=== PATIENT | female | born 1945 | race Asian ===

== ENCOUNTER 2017-12-15 16:52 | Emergency (ER) | payer MEDICARE, OTHER ==
[2017-12-15 17:05] VITALS: BP 138/57
== END 2017-12-15 18:00 | disposition left against medical advice (07) ==
LOC: ED 16:52
DX: Z53.21 Procedure and treatment not carried out due to patient leaving prior to being seen by health care provider (principal)
CPT/HCPCS: 80053; 83690; 85025

== ENCOUNTER 2017-12-16 09:42 | Emergency (ER) | payer MEDICARE, OTHER ==
--- NOTE | 2017-12-16 11:14 | ED Physician Documentation ---
PD HPI ABD PAIN - Stated complaint Stated Complaint: ABD PX - Chief complaint Chief Complaint: Abd Pain - History obtained from History obtained from: Patient, Family - History of Present Illness Timing - onset: How many weeks ago (2) Timing - duration: Weeks (2) Timing - details: Gradual onset, Still present Quality: Sharp, Pain Location: RLQ Radiation: Right flank Improved by: Laying still Worsened by: Moving, Position, Palpation Associated symptoms: Constipation. No: Fever, Nausea, Vomiting, Hematemesis, Diarrhea Similar symptoms before: Has not had sx before Recently seen: Clinic (referred here for CT yesterday) - Additional information Additional information: 72 year old female with abdominal pain on the right side for the past 2 weeks was asked by her primary care doctor to come to the emergency department for evaluation of abdominal pain specifically to get a CT scan to rule out occult appendicitis. The patient has been having pain in the right side that she states is worse when she moves and improves when she has gas. She does states she was out in the garden before all this started she thinks she may have strained her abdominal muscles. She has been able to eat she has not had fever she is otherwise otherwise been ill. She continues to have this pain and she continues to feel there is some issue with gas as well. Review of Systems Constitutional: denies: Fever, Chills, Myalgias, Fatigue Eyes: denies: Decreased vision Ears: denies: Ear pain Nose: denies: Rhinorrhea / runny nose, Congestion Throat: denies: Sore throat Cardiac: denies: Chest pain / pressure, Palpitations Respiratory: denies: Dyspnea, Cough GI: reports: Abdominal Pain, Constipation. 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 Cardiovascular: Coronary stent - Present Medications Home Medications: Ambulatory Orders Medication Instructions Recorded Confirmed Alendronate Sodium 70 mg PO Q7D 11/19/16 11/19/16 Amitriptyline [Elavil] 10 mg PO HS 11/19/16 11/19/16 Aspirin [Aspir-Low] 81 mg PO DAILY 11/19/16 11/19/16 Atorvastatin Calcium [Lipitor] 40 mg PO DAILY 11/19/16 11/19/16 Carvedilol 12.5 mg PO BID 11/19/16 11/19/16 Gabapentin 100 mg PO QPM 11/19/16 11/19/16 Isosorbide Mononitrate [Isosorbide 30 mg PO DAILY 11/19/16 11/19/16 Mononitrate ER] Losartan [Cozaar] 50 mg PO DAILY 11/19/16 11/19/16 Metformin HCl 1,000 mg PO DAILY 11/19/16 11/19/16 Nitroglycerin [Nitrostat] 0.4 mg SL Q5MIN PRN 11/19/16 11/19/16 Sitagliptin Phos/Metformin HCl 1 each PO DAILY 11/19/16 11/19/16 [Janumet 50-500 mg Tablet] - Allergies Allergies/Adverse Reactions: Allergies Allergy/AdvReac Type Severity Reaction Status Date / Time aspirin AdvReac Unknown Verified 12/15/17 17:04 ibuprofen [From Advil] AdvReac Unknown Verified 12/15/17 17:04 - Social History Smoking Status: Never smoker PD ED PE NORMAL - Vitals Vital signs reviewed: Yes (normal ) - General General: Alert and oriented X 3, No acute distress, Well developed/nourished - HEENT HEENT: Atraumatic, PERRL, EOMI - Neck Neck: Supple, no meningeal sign - Cardiac Cardiac: RRR, No murmur - Respiratory Respiratory: No respiratory distress, Clear bilaterally - Abdomen Abdomen: Soft, Other (tenderness to the right abdomen with a feeling of fullness and there is no garding or rebound tenderness. There is no referred tenderness. ) - Back Back: No CVA TTP, No spinal TTP - Derm Derm: Normal color, Warm and dry, No rash - Extremities Extremities: No deformity, No edema - Neuro Neuro: No motor deficit, No sensory deficit Eye Opening: Spontaneous Motor: Obeys Commands Verbal: Oriented GCS Score: 15 - Psych Psych: Normal mood, Normal affect Results - Vitals Vitals: Vital Signs - 24 hr 12/16/17 10:05 Temperature 36.1 C L Heart Rate 81 Respiratory 16 Rate Blood Pressure 134/61 H O2 Saturation 98 Oxygen O2 Source Room air - Labs Labs: Laboratory Tests 12/16/17 12/16/17 12/16/17 11:35 11:35 12:35 WBC 7.0 RBC 4.39 Hgb 12.8 Hct 38.5 MCV 87.6 MCH 29.2 MCHC 33.3 RDW 13.5 Plt Count 213 MPV 9.5 Neut # 3.3 Lymph # 2.5 [place] # 0.6 Eos # 0.3 Baso # 0.2 H Absolute Nucleated RBC 0.00 Nucleated RBC % 0.0 Sodium 136 Potassium 3.6 Chloride 102 Carbon Dioxide 26 Anion Gap 8.0 BUN 19 Creatinine 0.8 Estimated GFR (MDRD) 71 L Glucose 149 H Calcium 9.3 Total Bilirubin 0.7 AST 28 ALT 29 Alkaline Phosphatase 55 Total Protein 7.9 Albumin 4.4 Globulin 3.5 Albumin/Globulin Ratio 1.3 Lipase 29 Urine Color LIGHT YELLOW Urine Clarity CLEAR Urine pH 6.5 Ur Specific [place] <=1.005 Urine Protein NEGATIVE Urine Glucose (UA) NEGATIVE Urine Ketones NEGATIVE Urine Occult Blood NEGATIVE Urine Nitrite NEGATIVE Urine Bilirubin NEGATIVE Urine Urobilinogen 0.2 (NORMAL) Ur Leukocyte Esterase NEGATIVE Ur Microscopic Review NOT INDICATED Urine Culture Comments NOT INDICATED - Rads (name of study) CT abd/pel with Radiology: Prelim report reviewed (Impression: Diffuse fatty infiltration of the liver. The appendix is partially air-filled, top to normal borderline in size 6-7 mm without perapendical inflammatory change. No radiopaque gallstones or renal stones. Source of pain is not seen.), EMP read indepedently, See rad report PD MEDICAL DECISION MAKING - ED course Complexity details: reviewed results, re-evaluated patient, considered differential, d/w patient, d/w family ED course: 72 year-old female with right-sided abdominal pain has no evidence of appendicitis on CT scan has a normal white blood cell count and CT scan does show a lot of stool throughout the colon. She is diagnosed with constipation results of the scan are shared and we will treat the constipation. Departure - Departure Disposition: 01 Home, Self Care Clinical Impression: Constipation Qualifiers: Constipation type: unspecified constipation type Qualified Code(s): K59.00 - Constipation, unspecified Instructions: ED Constipation Follow-Up: Susana Gabriel MD [Primary Care Provider] -
[2017-12-16 11:50] LABS: BASOPHILS # (AUTO) 0.2 10^3/uL (0.0-0.1); BASOPHILS % (AUTO) 2.2 %; EOSINOPHILS # (AUTO) 0.3 10^3/uL (0.0-0.7); EOSINOPHILS % (AUTO) 4.5 %; HGB - HEMOGLOBIN 12.8 g/dL (12.0-16.0); LYMPHOCYTES # (AUTO) 2.5 10^3/uL (1.5-3.5); LYMPHOCYTES % (AUTO) 36.4 %; MEAN CORPUSCULAR HEMOGLOBIN 29.2 pg (27.0-31.0); MEAN CORPUSCULAR HGB CONC 33.3 g/dL (32.0-36.0); MEAN CORPUSCULAR VOLUME 87.6 fL (81.0-99.0); MEAN PLATELET VOLUME 9.5 fL (7.9-10.8); MONOCYTES # (AUTO) 0.6 10^3/uL (0.0-1.0); MONOCYTES % (AUTO) 9.1 %; NEUTROPHILS # (AUTO) 3.3 10^3/uL (1.5-6.6); NEUTROPHILS % (AUTO) 47.8 %; PLT - PLATELET COUNT 213 10^3/uL (130-450); RED BLOOD COUNT 4.39 10^6/uL (4.20-5.40); RED CELL DISTRIBUTION WIDTH 13.5 % (12.0-15.0)
[2017-12-16] MEDS ORDERED: IOPAMIDOL-300 100 ML VIAL ONE (11:51)
[2017-12-16 12:00] LABS: ALBUMIN 4.4 g/dL (3.2-5.5); ALBUMIN/GLOBULIN RATIO 1.3 (1.0-2.2); BILIRUBIN,TOTAL 0.7 mg/dL (0.2-1.0); CALCIUM 9.3 mg/dL (8.5-10.3); CREATININE 0.8 mg/dL (0.4-1.0); TOTAL PROTEIN 7.9 g/dL (6.7-8.2)
[2017-12-16] MEDS ORDERED: IOPAMIDOL-300 100 ML VIAL IVP ONE (12:41)
--- NOTE | 2017-12-16 13:05 | CT Report ---
EXAM: CT ABDOMEN AND PELVIS EXAM DATE: 12/16/2017 12:40 PM. CLINICAL HISTORY: Right sided abdominal pain. COMPARISONS: None. TECHNIQUE: Routine helical CT imaging was performed through the abdomen and pelvis. IV contrast: 100M L ISOVUE 300. Enteric contrast: No. Reconstructions: Coronal and sagittal. In accordance with CT protocol optimization, one or more of the following dose reduction techniques w ere utilized for this exam: automated exposure control, adjustment of mA and/or KV based on patient s ize, or use of iterative reconstructive technique. FINDINGS: Lung Bases: Unremarkable. Liver: Diffuse fatty infiltration. No masses. Gallbladder/Bile Ducts: Unremarkable. Spleen: Normal. Pancreas: Normal. Adrenal Glands: Normal. Kidneys: No masses or hydronephrosis. Peritoneal Cavity/Bowel: No free fluid, free air or adenopathy. No masses or acute inflammatory proce ss. The appendix is seen, is partially air filled and measures 6-7 mm transverse. No definite periapp endiceal inflammatory changes are seen. Pelvic Organs: The bladder is within normal limits. Uterus not seen. Vasculature: No aneurysms or other significant abnormality. Bones: No significant abnormality. Other: No source for right-sided abdominal pain is not identified IMPRESSION: Diffuse fatty infiltration of the liver. The appendix is partially air-filled, top normal to borderline in size 6-7 mm without periappendiceal inflammatory change. No radiopaque gallstones o r renal stones. A source for pain is not seen. [facility] Referring Provider Line: [phone] SITE ID: [id number]
[2017-12-16 13:31] LABS: BILIRUBIN,URINE NEGATIVE (NEGATIVE); CLARITY,URINE CLEAR (CLEAR); GLUCOSE, URINE (UA) NEGATIVE (NEGATIVE); KETONES,URINE (UA) NEGATIVE (NEGATIVE); LEUKOCYTE ESTERASE, URINE NEGATIVE (NEGATIVE); NITRITE,URINE NEGATIVE (NEGATIVE); OCCULT BLOOD,URINE NEGATIVE (NEGATIVE); PH,URINE 6.5 PH (5.0-7.5); PROTEIN,URINE NEGATIVE (NEGATIVE); UROBILINOGEN,URINE 0.2 (NORMAL) E.U./dL (NORMAL)
[2017-12-16] MEDS ORDERED: MAGNESIUM HYDROXIDE 2,400 MG/30 ML UDC PO STA (13:56)
[2017-12-16 14:01] VITALS: BP 174/74
== END 2017-12-16 14:09 | disposition home or self-care (01) ==
LOC: ED 09:42
DX: K59.00 Constipation, unspecified (principal); I10 Essential (primary) hypertension; E78.00 Pure hypercholesterolemia, unspecified; I25.10 Atherosclerotic heart disease of native coronary artery without angina pectoris; E11.9 Type 2 diabetes mellitus without complications; Z79.84 Long term (current) use of oral hypoglycemic drugs; Z95.5 Presence of coronary angioplasty implant and graft; Z79.82 Long term (current) use of aspirin
CPT/HCPCS: 36415; 74177; 80053; 81003; 83690; 85025; 99283; A9270; Q9967; 81001; 87086

== ENCOUNTER 2018-02-12 14:37 | Outpatient (CLI) | payer MEDICARE, OTHER ==
--- NOTE | 2018-02-13 11:23 | DEXA Report ---
DEXA SCAN: 02/12/2018 HISTORY: Osteoporosis, on Fosamax. TECHNIQUE: Dual energy x-ray absorptiometry (DXA) was performed on a [employer] system. Regions measured are the AP spine, femoral neck, and, if needed, forearm. COMPARISON: None. In accordance with the International Society for Clinical Densitometry (ISCD) guidelines, data from previous exams may be reanalyzed using current recommendations and techniques. This is done to allow a more accurate basis for comparison with the current study. FINDINGS: The data for the lumbar spine is as follows: REGION BMD (g/cm/cm) T-SCORE Z-SCORE L1 0.716 -3.4 -1.4 L2 0.855 -2.9 -0.8 L3 0.986 -1.8 0.3 L4 0.931 -2.2 -0.2 TOTAL 0.875 -2.5 -0.5 NOTE: All evaluable vertebrae are used for classification. The data for the hip is as follows: REGION BMD (g/cm/cm) T-SCORE Z-SCORE Neck 0.769 -1.9 0.0 TOTAL 0.863 -1.1 0.6 NOTE: The femoral neck or total proximal femur, whichever is lowest, is used for classification. IMPRESSION: THE WHO CLASSIFICATION BASED ON THE INTERNATIONAL REFERENCE STANDARD IS OSTEOPOROSIS. THE FRACTURE RISK IS HIGH. RECOMMENDATION: Patients with diagnosis of osteoporosis or osteopenia should have regular bone mineral density assessment. For those eligible for Medicare, routine testing is allowed once every 2 years. Testing frequency can be increased for patients who have rapidly progressing disease or for those who are receiving medical therapy to restore bone mass. COMMENT: World Health Organization (WHO) definitions for osteoporosis and osteopenia: NORMAL BMD: T-score at 1.0 or higher, fracture risk is low. OSTEOPENIA BMD: T-score between 1.0 and -2.5, fracture risk is increased. OSTEOPOROSIS BMD: T-score at 2.5 or lower, fracture risk high. National Osteoporosis Foundation recommends: 1. Obtain adequate dietary calcium (at least 1200 mg per day) and vitamin D (400 -800 international units per day). 2. Participate, as appropriate, in regular weightbearing and muscle- strengthening exercise. 3. Avoid tobacco use and reduce alcohol and caffeine intake. 4. For more detailed information see the website at www.NOF.org. MTDD
== END 2018-02-12 14:38 | disposition home or self-care (01) ==
LOC: DI 14:37
PROVIDERS: ATTEND Internal Medicine
DX: M81.0 Age-related osteoporosis without current pathological fracture (principal)
CPT/HCPCS: 77080

== ENCOUNTER 2018-02-12 14:39 | Outpatient (CLI) | payer MEDICARE, OTHER ==
--- NOTE | 2018-02-13 11:21 | Mammography Report ---
SCREENING MAMMOGRAM: 02/12/2018 TECHNIQUE: Bilateral digital and exaggerated CC and MLO projections are performed. COMPARISON: 12/04/2011. FINDINGS: The breast tissue is heterogeneously dense. Bilateral vesicular calcification present. No dominant mass, architectural distortion, suspicious microcalcifications, skin thickening or significant interval change. IMPRESSION: NEGATIVE BI-RADS CATEGORY 1. RECOMMENDATION: Suggest return to routine screening in 12 months. STANDARD QUALIFYING STATEMENTS: 1. This examination was reviewed with the aid of Computer-Aided Detection (CAD). 2. A negative or benign imaging report should not delay biopsy if clinically suspicious findings are present. Consider surgical consultation if warranted. More than 5% of cancers are not identified by imaging. 3. Dense breasts may obscure an underlying neoplasm. TD: 02/13/2018 09:54
== END 2018-02-12 14:40 | disposition home or self-care (01) ==
LOC: DI 14:39
PROVIDERS: ATTEND Internal Medicine
DX: Z12.31 Encounter for screening mammogram for malignant neoplasm of breast (principal)
CPT/HCPCS: 77067

== ENCOUNTER 2018-05-08 22:31 | Emergency (ER) | payer MEDICARE, OTHER ==
--- NOTE | 2018-05-08 22:40 | ED Physician Documentation ---
PD HPI DYSPNEA - Stated complaint Stated Complaint: SOA - History obtained from History obtained from: Patient - History of Present Illness Timing - onset: Today (this evening) Timing - onset during: Rest Timing - details: Abrupt onset Improved by: Other (nothing) Worsened by: Other (no exacerbating factors) Associated symptoms: Cough, Chest pain / discomfort. No: Fever, Wheezing, Bilateral edema, Unilateral edema Similar symptoms before: Has not had sx before (has had reflux before, but not this severe nor associated with dyspnea) Recently seen: Not recently seen - Additional information Additional information: c/o midline chest burning discomfort, started this evening, associated with eructation and mild dyspnea Review of Systems Constitutional: reports: Reviewed and negative Cardiac: reports: Chest pain / pressure. 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 Cardiovascular: Coronary stent - Present Medications Home Medications: Ambulatory Orders Medication Instructions Recorded Confirmed Alendronate Sodium 70 mg PO Q7D 11/19/16 11/19/16 Amitriptyline [Elavil] 10 mg PO HS 11/19/16 11/19/16 Aspirin [Aspir-Low] 81 mg PO DAILY 11/19/16 11/19/16 Atorvastatin Calcium [Lipitor] 40 mg PO DAILY 11/19/16 11/19/16 Carvedilol 12.5 mg PO BID 11/19/16 11/19/16 Gabapentin 100 mg PO QPM 11/19/16 11/19/16 Isosorbide Mononitrate [Isosorbide 30 mg PO DAILY 11/19/16 11/19/16 Mononitrate ER] Losartan [Cozaar] 50 mg PO DAILY 11/19/16 11/19/16 Metformin HCl 1,000 mg PO DAILY 11/19/16 11/19/16 Nitroglycerin [Nitrostat] 0.4 mg SL Q5MIN PRN 11/19/16 11/19/16 Sitagliptin Phos/Metformin HCl 1 each PO DAILY 11/19/16 11/19/16 [Janumet 50-500 mg Tablet] - Allergies Allergies/Adverse Reactions: Allergies Allergy/AdvReac Type Severity Reaction Status Date / Time ibuprofen [From Advil] AdvReac Unknown Verified 05/08/18 22:45 - Social History Does the pt smoke?: No Smoking Status: Never smoker PD ED PE NORMAL - Vitals Vital signs reviewed: Yes - General General: Alert and oriented X 3, No acute distress, Well developed/nourished - Cardiac Cardiac: RRR, No murmur - Respiratory Respiratory: No respiratory distress, Clear bilaterally - Abdomen Abdomen: Soft, Non tender - Derm Derm: Normal color, Warm and dry - Extremities Extremities: No edema Results - Vitals Vitals: Oxygen O2 Source Room air Oxygen Flow Rate 2 - EKG (time done) No standard instances Rate: Rate (enter#) (103), Tachy Rhythm: Sinus tachycardia [place]: Normal Intervals: Normal VT QRS: Normal Ischemia: Normal ST segments - Labs Labs: Laboratory Tests 05/08/18 05/08/18 05/08/18 22:48 23:28 23:28 WBC 11.6 H RBC 4.38 Hgb 12.9 Hct 38.5 MCV 87.9 MCH 29.6 MCHC 33.6 RDW 13.5 Plt Count 207 MPV 9.7 Neut # (Auto) 8.1 H Lymph # (Auto) 2.8 [place] # (Auto) 0.5 Eos # (Auto) 0.1 Baso # (Auto) 0.0 Absolute Nucleated RBC 0.00 Nucleated RBC % 0.0 D-Dimer Sodium 133 L Potassium 4.0 Chloride 102 Carbon Dioxide 21 Anion Gap 10.0 BUN 25 H Creatinine 0.7 Estimated GFR (MDRD) 82 L Glucose 244 H Calcium 8.9 Total Bilirubin 0.7 AST 24 ALT 27 Alkaline Phosphatase 50 Troponin I B-Natriuretic Peptide Total Protein 7.1 Albumin 4.0 Globulin 3.1 Albumin/Globulin Ratio 1.3 Lipase 61 H Urine Color YELLOW Urine Clarity CLEAR Urine pH 7.0 Ur Specific [place] 1.015 Urine Protein NEGATIVE Urine Glucose (UA) 100 H Urine Ketones NEGATIVE Urine Occult Blood NEGATIVE Urine Nitrite NEGATIVE Urine Bilirubin NEGATIVE Urine Urobilinogen 0.2 (NORMAL) Ur Leukocyte Esterase TRACE H Urine RBC None Seen Urine WBC 0-3 Ur Squamous Epith Cells MOD Squamous H Urine Bacteria None Seen Ur Microscopic Review INDICATED Urine Culture Comments NOT INDICATED 05/08/18 05/08/18 05/08/18 23:28 23:28 23:28 WBC RBC Hgb Hct MCV MCH MCHC RDW Plt Count MPV Neut # (Auto) Lymph # (Auto) [place] # (Auto) Eos # (Auto) Baso # (Auto) Absolute Nucleated RBC Nucleated RBC % D-Dimer 262.0 H Sodium Potassium Chloride Carbon Dioxide Anion Gap BUN Creatinine Estimated GFR (MDRD) Glucose Calcium Total Bilirubin AST ALT Alkaline Phosphatase Troponin I < 0.04 B-Natriuretic Peptide 26 Total Protein Albumin Globulin Albumin/Globulin Ratio Lipase Urine Color Urine Clarity Urine pH Ur Specific [place] Urine Protein Urine Glucose (UA) Urine Ketones Urine Occult Blood Urine Nitrite Urine Bilirubin Urine Urobilinogen Ur Leukocyte Esterase Urine RBC Urine WBC Ur Squamous Epith Cells Urine Bacteria Ur Microscopic Review Urine Culture Comments 05/09/18 01:30 WBC RBC Hgb Hct MCV MCH MCHC RDW Plt Count MPV Neut # (Auto) Lymph # (Auto) [place] # (Auto) Eos # (Auto) Baso # (Auto) Absolute Nucleated RBC Nucleated RBC % D-Dimer Sodium Potassium Chloride Carbon Dioxide Anion Gap BUN Creatinine Estimated GFR (MDRD) Glucose Calcium Total Bilirubin AST ALT Alkaline Phosphatase Troponin I < 0.04 B-Natriuretic Peptide Total Protein Albumin Globulin Albumin/Globulin Ratio Lipase Urine Color Urine Clarity Urine pH Ur Specific [place] Urine Protein Urine Glucose (UA) Urine Ketones Urine Occult Blood Urine Nitrite Urine Bilirubin Urine Urobilinogen Ur Leukocyte Esterase Urine RBC Urine WBC Ur Squamous Epith Cells Urine Bacteria Ur Microscopic Review Urine Culture Comments - Rads (name of study) chest xray Radiology: Prelim report reviewed, See rad report PD MEDICAL DECISION MAKING - ED course Complexity details: reviewed results, re-evaluated patient, considered differential, d/w patient ED course: no improvement temporally associated with albuterol, although she subsequently improved (both dyspnea and chest discomfort) while awaiting test results (2- hour repeat troponin with repeat EKG were performed) - Sepsis Event Vital Signs: Oxygen O2 Source Room air Oxygen Flow Rate 2 Departure - Departure Disposition: 01 Home, Self Care Clinical Impression: Chest pain, Dyspnea Condition: Good Instructions: ED Chest Pain Atypical Unkn Cause, ED Dyspnea Shortness of Breath Follow-Up: Susana Gabriel MD [Primary Care Provider] - (Call to arrange for next available appointment. Further testing might be necessary even if your symptoms resolve.) Comments: I recommend you try prilosec instead of the pepcid. Prilosec is available over- the-counter and thus a prescription is not necessary. Take one tablet by mouth once per day for two weeks. Discharge Date/Time: 05/09/18 02:38
[2018-05-08 22:53] LABS: BILIRUBIN,URINE NEGATIVE (NEGATIVE); GLUCOSE, URINE (UA) 100 mg/dL (NEGATIVE); KETONES,URINE (UA) NEGATIVE (NEGATIVE); LEUKOCYTE ESTERASE, URINE TRACE (NEGATIVE); NITRITE,URINE NEGATIVE (NEGATIVE); OCCULT BLOOD,URINE NEGATIVE (NEGATIVE); PROTEIN,URINE NEGATIVE (NEGATIVE); UROBILINOGEN,URINE 0.2 (NORMAL) E.U./dL (NORMAL)
[2018-05-08 22:55] LABS: CLARITY,URINE CLEAR (CLEAR)
[2018-05-08 23:02] LABS: BACTERIA,URINE None Seen /HPF (None Seen); RBC,URINE None Seen /HPF (0-5); SQUAMOUS EPITHELIAL CELL,UR MOD Squamous (<= Few)
[2018-05-08] MEDS ORDERED: ALBUTEROL NEB 2.5 MG/3 ML INH STA (23:04)
[2018-05-08 23:45] LABS: BASOPHILS % (AUTO) 0.4 %; EOSINOPHILS # (AUTO) 0.1 10^3/uL (0.0-0.7); EOSINOPHILS % (AUTO) 0.8 %; HGB - HEMOGLOBIN 12.9 g/dL (12.0-16.0); LYMPHOCYTES # (AUTO) 2.8 10^3/uL (1.5-3.5); LYMPHOCYTES % (AUTO) 24.5 %; MEAN CORPUSCULAR HEMOGLOBIN 29.6 pg (27.0-31.0); MEAN CORPUSCULAR HGB CONC 33.6 g/dL (32.0-36.0); MEAN CORPUSCULAR VOLUME 87.9 fL (81.0-99.0); MEAN PLATELET VOLUME 9.7 fL (7.9-10.8); MONOCYTES # (AUTO) 0.5 10^3/uL (0.0-1.0); MONOCYTES % (AUTO) 4.1 %; NEUTROPHILS # (AUTO) 8.1 10^3/uL (1.5-6.6); NEUTROPHILS % (AUTO) 70.2 %; PLT - PLATELET COUNT 207 10^3/uL (130-450); RED BLOOD COUNT 4.38 10^6/uL (4.20-5.40); RED CELL DISTRIBUTION WIDTH 13.5 % (12.0-15.0); WHITE BLOOD COUNT 11.6 x10^3/uL (4.8-10.8)
--- NOTE | 2018-05-08 23:50 | XRAY Report ---
Reason: dyspnea Procedure Date: 05/08/2018 Accession Number: [id number] / [id number] Procedure: XR - Chest 2 View X-Ray CPT Code: 17203 FULL RESULT: EXAM: CHEST RADIOGRAPHY EXAM DATE: 05/08/2018 11:24 PM. CLINICAL HISTORY: Dyspnea. COMPARISON: 11/15/2012. TECHNIQUE: 2 views. FINDINGS: Lungs/Pleura: No alveolar consolidation or pleural effusion seen. No pneumothorax. Mediastinum: Heart and mediastinal contours are unremarkable. Aortic atherosclerosis. Other: None. IMPRESSION: 1. No acute abnormality seen in the chest. [facility]
[2018-05-08 23:51] LABS: ALBUMIN/GLOBULIN RATIO 1.3 (1.0-2.2); BILIRUBIN,TOTAL 0.7 mg/dL (0.2-1.0); CALCIUM 8.9 mg/dL (8.5-10.3); CREATININE 0.7 mg/dL (0.4-1.0); TOTAL PROTEIN 7.1 g/dL (6.7-8.2)
[2018-05-09 02:38] VITALS: BP 121/85
== END 2018-05-09 02:38 | disposition home or self-care (01) ==
LOC: ED 22:31
DX: R07.9 Chest pain, unspecified (principal); R06.00 Dyspnea, unspecified; I25.10 Atherosclerotic heart disease of native coronary artery without angina pectoris; Z95.5 Presence of coronary angioplasty implant and graft; I10 Essential (primary) hypertension; E78.00 Pure hypercholesterolemia, unspecified; E11.9 Type 2 diabetes mellitus without complications; Z79.84 Long term (current) use of oral hypoglycemic drugs
CPT/HCPCS: 36415; 71046; 80053; 81001; 81003; 83690; 83880; 84484; 85025; 85379; 87086; 93005; 94640; 99283; 99284

== ENCOUNTER 2020-05-30 12:52 | Outpatient (CLI) | payer MEDICARE, OTHER ==
--- NOTE | 2020-05-31 14:13 | Mammography Report ---
BILATERAL DIGITAL SCREENING MAMMOGRAM 3D/2D: 05/30/2020 CLINICAL: Routine screening. Personal history of right breast cancer. Routine screening. Comparison is made to exams dated: 02/12/2018 mammogram, 05/14/2012 mammogram, and 05/14/2012 ultrasound - [facility]. The tissue of both breasts is predominantly fatty. No significant masses, calcifications, or other findings are seen in either breast. There has been no significant interval change. IMPRESSION: NEGATIVE There is no mammographic evidence of malignancy. A 1 year screening mammogram is recommended. This exam was interpreted at Station ID: [id number]. NOTE: For mammograms, a report in lay terms will be sent to the patient. Approximately 15% of breast malignancies will not be visualized mammographically. In the management of a palpable breast mass, a negative mammogram must not discourage biopsy of a clinically suspicious lesion. Electronically Signed By: Feliberto Fisher M.D., jr/morris:05/30/2020 13:40:54 ACR BI-RADS Category 1: Negative 3341F PARENCHYMAL PATTERN: (F) - The breast(s) demonstrate(s) diffuse fatty replacement. BI-RADS CATEGORY: (1) - 1 RECOMMENDATION: (ANNUAL) - Recommend routine annual screening mammography. [id number] 1 year screening LATERALITY: (B)
== END 2020-05-30 12:53 | disposition home or self-care (01) ==
LOC: DI 12:52
PROVIDERS: ATTEND Internal Medicine
DX: Z12.31 Encounter for screening mammogram for malignant neoplasm of breast (principal); Z85.3 Personal history of malignant neoplasm of breast
CPT/HCPCS: 77063; 77067

== ENCOUNTER 2020-05-30 12:53 | Outpatient (CLI) | payer MEDICARE, OTHER ==
--- NOTE | 2020-05-30 16:28 | DEXA Report ---
PROCEDURE: Dexa Spine and/or Hip INDICATIONS: DISORDER OF BONE TECHNIQUE: Dual energy x-ray absorptiometry (DXA) was performed on a [employer] System. Regions measur ed are the AP Spine, femoral neck, and if needed forearm. COMPARISON: 02/12/2018. FINDINGS: Lumbar Spine: Bone Mineral Density 0.866 g/cm/cm,T score -2.6, osteoporosis Left Femoral Neck: Bone Mineral Density 0.856 g/cm/cm, T score -1.2, osteopenia (T score greater or equal to -1.0: NORMAL) (T score from -1.1 to -2.4: OSTEOPENIA) (T score less than or equal to -2.5 to: OSTEOPOROSIS) Impression: Osteoporosis. Patient is at high risk for fracture. Patients with diagnosis of osteoporosis or osteopenia should have regular bone mineral density assess ment. For those eligible for Medicare, routine testing is allowed once every 2 years. Testing frequ ency can be increased for patients who have rapidly progressing disease or for those who are receivin g medical therapy to restore bone mass. Reviewed by: Deon Hobbs MD on 05/30/2020 4:26 PM PDT Approved by: Deon Hobbs MD on 05/30/2020 4:26 PM PDT Station ID: [id number]
== END 2020-05-30 12:54 | disposition home or self-care (01) ==
LOC: DI 12:53
PROVIDERS: ATTEND Internal Medicine
DX: M81.0 Age-related osteoporosis without current pathological fracture (principal)
CPT/HCPCS: 77080

== ENCOUNTER 2024-02-24 13:11 | Outpatient (CLI) | payer MEDICARE, OTHER ==
--- NOTE | 2024-02-24 13:48 | CT Report ---
PROCEDURE: Head WO INDICATIONS: MIGRAINE TECHNIQUE: Noncontrast 4.5 mm thick angled axial sections acquired from the foramen magnum to the vertex. For r adiation dose reduction, the following was used: automated exposure control, adjustment of mA and/or kV according to patient size. COMPARISON: None. FINDINGS: Image quality: Excellent. CSF spaces: Basal cisterns are patent. No extra-axial fluid collections. Ventricles are normal in size and shape. Brain: No midline shift. No intracranial masses or hemorrhage. Age-related global volume loss and c hronic microvascular ischemic changes. Intracranial atherosclerotic vascular calcifications. Patel-wh ite matter interface is normal. Skull and face: Calvarium and visualized facial bones are intact, without suspicious lesions. Bilate ral lens replacements. The orbits are otherwise normal in appearance. Sinuses: Visualized sinuses and mastoids are clear. IMPRESSION: No cause for patient's symptoms is identified. No acute intracranial pathology. Age-appropriate globa l volume loss and chronic microvascular ischemic changes. Reviewed by: Fransisco Fox MD on 02/24/2024 1:47 PM PDT Approved by: Fransisco Fox MD on 02/24/2024 1:47 PM PDT Station ID: [id number]
== END 2024-02-24 13:12 | disposition home or self-care (01) ==
LOC: DI 13:11
PROVIDERS: ATTEND Internal Medicine
DX: G43.009 Migraine without aura, not intractable, without status migrainosus (principal)